=== PATIENT | female | born 1985 | race Caucasian/White ===

== ENCOUNTER 2021-05-03 22:09 | Emergency (ER) | payer BC, SELFPAY | END 2021-05-03 23:10 | disposition home or self-care (01) | LOC: ERS 22:09 | DX: H65.92 Unspecified nonsuppurative otitis media, left ear (principal) | CPT/HCPCS: 99282 ==

== ENCOUNTER 2021-11-10 11:46 | Emergency (ER) | payer BC | END 2021-11-10 12:16 | disposition left against medical advice (07) | LOC: ERS 11:46 | DX: Z53.21 Procedure and treatment not carried out due to patient leaving prior to being seen by health care provider (principal) ==